=== PATIENT | male | born 1995 | race Two or more races ===

== ENCOUNTER → 2016-12-20 | Outpatient (CLI) | payer MEDICAID | END | disposition home or self-care (01) | LOC: LAB 14:59 | PROVIDERS: ATTEND Physician Assistant | DX: Z20.2 Contact with and (suspected) exposure to infections with a predominantly sexual mode of transmission (principal) ==

== ENCOUNTER 2017-03-20 05:31 | Emergency (ER) | payer MEDICAID ==
[~2017-03-20] VITALS: Ht 172.7 cm; Wt 81.6 kg
[2017-03-20 05:50] VITALS: BP 126/65
== END 2017-03-20 06:58 | disposition home or self-care (01) ==
LOC: ER 05:31
DX: S42.002A Fracture of unspecified part of left clavicle, initial encounter for closed fracture (principal); F17.210 Nicotine dependence, cigarettes, uncomplicated; W19.XXXA Unspecified fall, initial encounter; Y93.I9 Activity, other involving external motion; Y99.8 Other external cause status; Y92.89 Other specified places as the place of occurrence of the external cause
CPT/HCPCS: 73030

== ENCOUNTER 2017-12-29 18:45 | Emergency (ER) | payer MEDICAID ==
[~2017-12-29] VITALS: Ht 172.7 cm; Wt 86.2 kg
[2017-12-30] MEDS ORDERED: HYDROcodone-ACET 10/325MG TAB PO ONE (02:00)
[2017-12-30 02:30] VITALS: BP 129/79
== END 2017-12-30 02:48 | disposition home or self-care (01) ==
LOC: ER 18:45
DX: S80.11XA Contusion of right lower leg, initial encounter (principal); F17.210 Nicotine dependence, cigarettes, uncomplicated; W18.39XA Other fall on same level, initial encounter; Y93.89 Activity, other specified; Y92.89 Other specified places as the place of occurrence of the external cause; Y99.8 Other external cause status
CPT/HCPCS: 93971

== ENCOUNTER 2024-07-01 02:35 | Emergency (ER) | payer MEDICAID, OTHER ==
[~2024-07-01] VITALS: Ht 175.3 cm; Wt 90.9 kg
[2024-07-01 03:18] VITALS: BP 136/82; PULSE 76; RESP 18; TEMP 97.8; O2SAT 98
[2024-07-01] MEDS: ERYTHROMY OPTH OINT 5mg/gm 1gm or 3.5gm tube OP ONE (03:34)
[2024-07-01] MEDS: TETRACAINE HCL 0.5% OPTH(EYE) SOLN 4ML EACHEYE ONE (03:35)
[2024-07-01] MEDS: FLUORESCEIN SOD OPTH TEST STRIP EACHEYE ONE (03:35)
[2024-07-01] MEDS: ONDANSETRON ODT 4 MG TAB PO ONE (03:36)
[2024-07-01] MEDS: HYDROcodone-ACET 5/325MG TAB PO ONE (04:00)
[2024-07-01] MEDS ORDERED: CIPR0.3S19 OP (04:15)
[2024-07-01] MEDS ORDERED: METH4PAK PO (04:19)
== END 2024-07-01 04:40 | disposition home or self-care (01) ==
LOC: ER 02:35
DX: H16.133 Photokeratitis, bilateral (principal); F17.210 Nicotine dependence, cigarettes, uncomplicated; Z79.899 Other long term (current) drug therapy; W89.8XXA Exposure to other man-made visible and ultraviolet light, initial encounter; Y93.89 Activity, other specified; Y92.89 Other specified places as the place of occurrence of the external cause; Y99.8 Other external cause status
CPT/HCPCS: 99284; Q0162